=== PATIENT | female | born 1985 | race African-American/Black ===

== ENCOUNTER 2018-07-05 17:05 | Emergency (ER) | payer OTHER ==
[~2018-07-05] VITALS: Ht 170.2 cm; Wt 117.9 kg
--- NOTE | 2018-07-05 17:17 | NUR ---
ED Nurse Note: Patient walked into ED c/o flu like symptoms for 3 days. patient is alert awake ambulatory, patient reports having sorethroat aching.
[2018-07-05 17:23] VITALS: BP 121/72
[2018-07-05] MEDS ORDERED: Lidocaine 2% Visc 15ml soln ORAL ONE (17:30)
[2018-07-05] MEDS ORDERED: Benzonatate 100mg Perles ORAL ONE (17:30)
--- NOTE | 2018-07-05 17:34 | Emergency Room Report ---
History of Present Illness General Chief Complaint: Flu Like Symptoms Source: Patient Present Illness HPI 33-year-old female patient presents the ER complaining of "I think I have the flu". Reports symptoms have been present for the past 3 days. Reports cough with "small amount" of blood with her sputum. Denies recent travel outside the country. Denies taking blood thinner medications. Denies taking control medications. Denies recent periods of immobilization denies history of cancer. Also complaining of sore throat during this time. Reports able to tolerate p.o. fluids. Denies vomiting or diarrhea. Denies abdominal pain. Denies chest pain or shortness of breath. Denies calf pain. Denies other aggravating or relieving factors. States that she received a flu vaccination approximately 2 weeks ago. Denies sick contacts at home. Denies smoking cigarettes. Denies drug use. Denies history of heart disease. Denies history of asthma or pneumonia. Denies bleeding elsewhere. Denies epistaxis. Allergies: Coded Allergies: No Known Allergies (Unverified , 07/05/18) Patient History Past Medical History: see triage record Last Menstrual Period: 06/14/18 Now: No Reviewed Nursing Documentation: PMH: Agreed; PSxH: Agreed Nursing Documentation-PMH Past Medical History: No Stated History Review of Systems All Other Systems: negative except mentioned in HPI Physical Exam Vital Signs Date Time Temp Pulse Resp B/P (MAP) Pulse Ox O2 Delivery O2 Flow Rate FiO2 07/05/18 17:09 98.2 104 21 125/78 98 Room Air Sp02 EP Interpretation: reviewed, normal General Appearance: well appearing, no apparent distress, alert, GCS 15, non- toxic Head: normocephalic, atraumatic Eyes: bilateral eye normal inspection, bilateral eye PERRL ENT: hearing grossly normal, normal pharynx, no angioedema, normal voice, TMs + canals normal, uvula midline, moist mucus membranes Neck: full range of motion, no meningismus, no bony tend Respiratory: lungs clear, normal breath sounds, no rhonchi, no respiratory distress, no accessory muscle use, no wheezing, speaking full sentences Cardiovascular #1: regular rate, rhythm, no edema Gastrointestinal: non tender, soft, no mass, non-distended, no guarding, no rebound Musculoskeletal: back normal, digits/nails normal, gait/station normal, normal range of motion, non-tender, no calf tenderness, Mark's Sign negative Neurologic: alert, oriented x3, responsive, motor strength/tone normal, sensory intact Psychiatric: mood/affect normal Skin: no rash Medical Decision Making PA Attestation Dr. Partida is my supervising Physician whom patient management has been discussed with. Diagnostic Impression: Primary Impression: Pneumonia ER Course Pt. presents to the ED c/o sore throat, cough with sputum, hemoptysis. Ddx considered but are not limited to pneumonia, influenza, TB, PE, viral URI, ,Henrique's, pharyngitis, tonsillitis, peritonsillar abscess. Low suspicion for PE per well's criteria. No trismus, uvula midline, no pharyngeal erythema or edema, low suspicion for peritonsillar abscess. Vital signs: are WNL, pt. is afebrile ER COURSE: Provided with medication in the ER. Chest x-ray shows possible right lower lobe consolidation consistent with pneumonia. Will provide patient with antibiotics. Urine negative. Flu swab negative. Patient resting comfortably no acute distress, states she is feeling better following administration of medication in the ER. Follow up with primary care provider in 1-2 days. Nontoxic appearing in no acute distress, no hypoxia, no confusion, no clinical signs of dehydration, okay for outpatient follow-up and treatment. ER precautions given DISCHARGE: At this time pt is stable for d/c to home. Patient is resting comfortably, in no acute distress, nontoxic appearing, talking without difficulty. Patient to take medications as instructed Will provide with patient care instructions and any necessary prescriptions. Care plan and follow-up instructions provided. Patient instructed to follow-up with primary care provider in 2-3 days. Patient questions asked and answered. Patient reports understanding and agreement to treatment plan. ER precautions given. Patient instructed to return to ER immediately for any new or worsening of symptoms including but not limited to increasing SOB, persistent fever, chest pain, intractable vomiting. - Please note that this Emergency Department Report was dictated using [employer] operator technology software, occasionally this can lead to erroneous entry secondary to interpretation by the dictation equipment. Labs Test 07/05/18 17:33 Urine HCG, Qualitative Negative (NEGATIVE) Chest X-Ray Diagnostic Results Chest X-Ray Diagnostic Results : Chest X-Ray Ordered: Yes # of Views/Limited/Complete: 1 View Indication: Chest Pain EP Interpretation: Yes ROSA Xray: Interpretation reviewed, by supervising MD, and agrees with findings. Interpretation: no effusion, no pneumothorax, other - Right lower lobe consolidation Impression: Other - Pneumonia ROSA Scribe Text Ramón Stewart PA-C Last Vital Signs Date Time Temp Pulse Resp B/P (MAP) Pulse Ox O2 Delivery O2 Flow Rate FiO2 07/05/18 17:23 98.2 94 17 121/72 95 Room Air Status: improved Disposition: HOME, SELF-CARE Condition: Stable Scripts Azithromycin* (ZITHROMAX*) 250 Mg Tablet 250 MG ORAL DAILY, #6 TAB 0 Refills Take two tables once daily for 1 day, then one tablet once daily for 4 days. Prov: Mike Stewart 07/05/18 Benzonatate* (TESSALON PERLE*) 100 Mg Capsule 100 MG ORAL THREE TIMES A DAY, #30 PERLE Prov: Mike Stewart 07/05/18 Ibuprofen* (MOTRIN*) 600 Mg Tablet 600 MG ORAL Q8H PRN for For Pain, #30 TAB 0 Refills Prov: Mike Stewart 07/05/18 Patient Instructions: Community-Acquired Pneumonia, Adult, [id number], Sore Throat, [id number] Additional Instructions: Followup with primary care provider in 2-3 days. Take Tylenol and/or Motrin as needed for pain Salt water gargles 5-6 times a day. Take medications as directed. Patient questions asked and answered. ER precautions given, patient instructed to return to ER immediately for any new or worsening of symptoms. Mike Stewart Jul 05, 2018 17:34
[2018-07-05] MEDS ORDERED: ZITHROMAX250 MG ORAL (18:34)
[2018-07-05] MEDS ORDERED: TESSALON PERLE100 MG ORAL (18:34)
[2018-07-05] MEDS ORDERED: IBUPROFEN600 MG ORAL (18:34)
--- NOTE | 2018-07-06 09:46 | Diagnostic Imaging Report ---
Indication: Shortness of breath Technique: One view of the chest Comparison: none Findings: Inspiration is suboptimal. Heart size is upper limits of normal. Lungs and pleural spaces are clear. Impression: No acute process
== END 2018-07-05 18:30 | disposition home or self-care (01) ==
LOC: EMR 17:39
DX: J18.9 Pneumonia, unspecified organism (principal)
CPT/HCPCS: 71045; 81025; 86710; 99283

== ENCOUNTER 2018-07-25 10:17 | Emergency (ER) | payer MEDICAID, OTHER ==
[~2018-07-25] VITALS: Ht 170.2 cm; Wt 117.9 kg
[~2018-07-25 10:17] MED LIST: IBUPROFEN600 MG ORAL; TESSALON PERLE100 MG ORAL; ZITHROMAX250 MG ORAL
[2018-07-25] MEDS ORDERED: NKM (10:25)
--- NOTE | 2018-07-25 11:16 | Emergency Room Report ---
History of Present Illness General Chief Complaint: Lower Extremity Injury Source: Patient Present Illness HPI Patient presents with left knee pain with chronic swelling. She has been evaluated with CT scan and MRI. The pain is both laterally and also posteriorly in the knee. She feels fullness in the back of her knee. She says that the MRI only revealed fluid in the joint space. She is never been evaluated for gout. She denies any fevers or chills. The knee does not feel warm to her and there are no rashes. She is able to ambulate. She takes Naprosyn which helps the pain. For the last few days the pain is increased and she has had difficulty sleeping at night. She has some decreased range of motion. Her job has her on her feet and this is difficult due to the pain. She has had an Luis wrap in the past but does not have one at this time. It was helpful at that time. The pain is rated 9/10 and worse with walking or bending her knee. It does not radiate. No dysuria, change in bowel habits, dyspnea, chest pain or depression. She denies major medical problems. There is no have family history of gout or arthritis. Allergies: Coded Allergies: No Known Allergies (Unverified , 07/05/18) Patient History Past Medical History: see triage record Social History: Denies: smoking Social History Narrative Works on her feet Last Menstrual Period: 06/14/18 Reviewed Nursing Documentation: PMH: Agreed; PSxH: Agreed Nursing Documentation-PMH Past Medical History: No Stated History Review of Systems All Other Systems: negative except mentioned in HPI Physical Exam Vital Signs Date Time Temp Pulse Resp B/P (MAP) Pulse Ox O2 Delivery O2 Flow Rate FiO2 07/25/18 10:23 98.4 86 18 146/95 96 Room Air Sp02 EP Interpretation: reviewed, normal General Appearance: well appearing, no apparent distress, alert, GCS 15 Head: normocephalic, atraumatic Eyes: bilateral eye normal inspection, bilateral eye PERRL ENT: hearing grossly normal, normal voice, moist mucus membranes Neck: full range of motion, supple Respiratory: no respiratory distress, speaking full sentences Cardiovascular #1: regular rate, rhythm, no edema Cardiovascular #2: 2+ radial (R), 2+ dorsalis pedis (L) Gastrointestinal: normal inspection Musculoskeletal: no calf tenderness, decreased range of mation - Flexion left knee, swelling - Minimal left knee, other - Ligaments are stable, Apley's compression negative. Slightly increased lateral tenderness and also popliteal fossa tenderness without masses appreciated. Neurologic: alert, oriented x3, normal gait, grossly normal Psychiatric: mood/affect normal Skin: no rash Medical Decision Making Diagnostic Impression: Primary Impression: Knee pain Qualified Codes: M25.562 - Pain in left knee ER Course Patient presents with worsening left knee pain post evaluation with MRI. Differential includes strain, Acuña's cyst, osteoarthritis amongst others. Based on exam gout is not high in the list. Patient be treated with Naprosyn and an Luis. Since the MRI was recently completed no further imaging studies are indicated at this time. Luis is was applied by me. Position and tension excellent with improvement in symptoms. Neurovascular checked by me and normal. Discussed treatment plan and need for follow-up. Patient stable for outpatient observation and treatment. Last Vital Signs Date Time Temp Pulse Resp B/P (MAP) Pulse Ox O2 Delivery O2 Flow Rate FiO2 07/25/18 11:30 98.3 67 18 132/61 98 Room Air Status: improved Disposition: HOME, SELF-CARE Condition: Stable Scripts Hydrocodone Bit/Acetaminophen 5-325* (NORCO 5-325*) 1 Each Tablet 1 TAB ORAL Q6H PRN for For Pain, #6 TAB 0 Refills Prov: Jeremy Curry MD 07/25/18 Naproxen (Naproxen) 250 Mg Tablet 250 MG PO TID, #20 TAB Prov: Jeremy Curry MD 07/25/18 Jeremy Curry MD Jul 25, 2018 11:16
[2018-07-25] MEDS ORDERED: NORCO 5-325 TA1 EACH ORAL (11:27)
[2018-07-25] MEDS ORDERED: NAPROXEN250 M1 PO (11:27)
[2018-07-25 11:30] VITALS: BP 132/61
[2018-07-25] MEDS ORDERED: Naproxen 500mg tab ORAL ONE (11:30)
[2018-11-21] MEDS ORDERED: IBU800 MG PO (13:35)
[2018-11-21] MEDS ORDERED: VOLTAREN100 G1 TP (13:35)
[2018-11-21] MEDS ORDERED: NITROFURANTOIN100 M2 ORAL (13:35)
== END 2018-07-25 11:30 | disposition home or self-care (01) ==
LOC: EMR 11:19
DX: M25.562 Pain in left knee (principal)
CPT/HCPCS: 99282

== ENCOUNTER → 2018-11-21 | Emergency (ER) | payer MEDICAID, OTHER ==
[~2018-11-21] VITALS: Ht 170.2 cm; Wt 113.4 kg
[~2018-11-21] MED LIST changes: +IBU800 MG PO; +NAPROXEN250 M1 PO; +NITROFURANTOIN100 M2 ORAL; +NKM; +NORCO 5-325 TA1 EACH ORAL; +VOLTAREN100 G1 TP
[2018-11-21 13:10] VITALS: BP 122/71
--- NOTE | 2018-11-21 13:10 | NUR ---
ED Nurse Note: Patient ambulated in to ER from home due to Lt knee pain 10/12 without injury. Patient alert and oriented x4 and ambulatory. Skin clean and intact. Calm and cooperative. No acute distress noted at this time.
--- NOTE | 2018-11-21 13:33 | Emergency Room Report ---
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 Patient reports that all imaging has already been done however is requesting a note for work. Patient is rating the pain 7 out of 10 with radiation to the calf however no calf tenderness noted. Denies tingling numbness. Denies recent fall or injury. Patient is morbidly obese. Also complains of 2 days of dysuria and urinary frequency. Denies fever and chills, abdominal pain, nausea vomiting. Has not taken medication for symptom relief. Allergies: Coded Allergies: No Known Allergies (Unverified , 07/05/18) Patient History Past Medical History: see triage record Past Surgical History: unable to obtain Pertinent Family History: none Last Menstrual Period: 11/09/2018 Now: No Immunizations: UTD Reviewed Nursing Documentation: PMH: Agreed; PSxH: Agreed Nursing Documentation-PMH Past Medical History: No History, Except For Review of Systems All Other Systems: negative except mentioned in HPI Physical Exam Vital Signs Date Time Temp Pulse Resp B/P (MAP) Pulse Ox O2 Delivery O2 Flow Rate FiO2 11/21/18 13:09 99.0 88 16 122/71 (88) 97 Room Air Sp02 EP Interpretation: reviewed, normal General Appearance: no apparent distress, alert, GCS 15, non-toxic Head: normocephalic, atraumatic Eyes: bilateral eye normal inspection, bilateral eye PERRL ENT: hearing grossly normal, normal pharynx, no angioedema, normal voice Neck: full range of motion, supple, supple/symm/no masses Respiratory: chest non-tender, lungs clear, normal breath sounds, no wheezing, speaking full sentences Cardiovascular #1: regular rate, rhythm, no edema, no murmur, normal capillary refill Gastrointestinal: normal bowel sounds, non tender, soft, non-distended, no guarding, no rebound Genitourinary: no CVA tenderness Musculoskeletal: other - Acuña's cyst palpated in the back of left knee Neurologic: normal inspection, alert, oriented x3, responsive Psychiatric: judgement/insight normal, memory normal, mood/affect normal, no suicidal/homicidal ideation Skin: no rash Lymphatic: no adenopathy Medical Decision Making PA Attestation Diagnosis and treatment plans were reviewed and discussed with my supervising physician Dr. 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 Patient reports that all imaging has already been done however is requesting a note for work. Patient is rating the pain 7 out of 10 with radiation to the calf however no calf tenderness noted. Denies tingling numbness. Denies recent fall or injury. Patient is morbidly obese. Also complains of 2 days of dysuria and urinary frequency. Denies fever and chills, abdominal pain, nausea vomiting. Has not taken medication for symptom relief. Ddx considered but are not limited to: UTI, pyelonephritis, urinary incontinence , prolapsed bladder, Acuña's cyst versus DVT Vital signs: are WNL, pt. is afebrile H&PE are most consistent with: Acuña's cyst, UTI ORDERS: UA, urine , Macrobid, Pyridium, ibuprofen ED INTERVENTIONS: None required at this time. DISCHARGE: At this time pt. is stable for d/c to home. Will provide printed patient care instructions, and any necessary prescriptions. Care plan and follow up instructions have been discussed with the patient prior to discharge. No need for vascular duplex ultrasound since patient has been having this pain and says for several months. Follow-up with your primary care provider weight loss highly advised Last Vital Signs Date Time Temp Pulse Resp B/P (MAP) Pulse Ox O2 Delivery O2 Flow Rate FiO2 11/21/18 13:10 99.0 65 16 122/71 97 Room Air Disposition: HOME, SELF-CARE Condition: Stable Scripts Nitrofurantoin Monohyd/M-Cryst* (MACROBID 100 MG*) 100 Mg Capsule 100 MG ORAL EVERY 12 HOURS for 7 Days, #14 CAP Prov: Lennox oRusseau 11/21/18 Diclofenac Sodium (VOLTAREN) 100 Gm Gel..gram. 2 GM TP TID, #100 GM Prov: Lennox Rousseau 11/21/18 Ibuprofen (Ibu) 800 Mg Tablet 800 MG PO TID, #21 TAB Prov: Lennox Rousseau 8/19/19 Referrals: NOT CHOSEN IPA/MD,REFERRING (PCP) Patient Instructions: Acuña Cyst, Urinary Tract Infection, [id number] Additional Instructions: Take medication as directed follow-up with your primary care provider weight loss highly advised at this time no x-rays needed if there was no injury and you have been having this pain and sits for long time. Lennox Rousseau Nov 21, 2018 13:33
== END | disposition home or self-care (01) ==
LOC: EMR 13:25
DX: M71.22 Synovial cyst of popliteal space [Baker], left knee (principal); N39.0 Urinary tract infection, site not specified
CPT/HCPCS: 81025; 99282

== ENCOUNTER 2019-01-23 21:31 | Emergency (ER) | payer MEDICAID ==
[~2019-01-23] VITALS: Ht 170.2 cm; Wt 113.4 kg
[2019-01-23 21:45] VITALS: BP 138/89
--- NOTE | 2019-01-23 21:46 | NUR ---
ED Nurse Note: pt walked in to ED C/O lower right ABD pain for the past 3 days. pt also states she has burning sensation when voiding. denies any N/V/D. pt is alert x4. VSS
[2019-01-23 22:15] LABS: APPEARANCE,URINE CLEAR; BILIRUBIN, URINE NEGATIVE (NEGATIVE); COLOR,URINE PALE YELLOW; GLUCOSE, URINE (UA) NEGATIVE (NEGATIVE); KETONES,URINE NEGATIVE (NEGATIVE); LEUKOCYTE ESTERASE ,URINE NEGATIVE (NEGATIVE); NITRITE,URINE NEGATIVE (NEGATIVE); PH,URINE 6 (4.5-8.0); PROTEIN,URINE NEGATIVE (NEGATIVE); UROBILINOGEN,URINE NORMAL MG/DL (0.0-1.0)
[2019-01-23] MEDS ORDERED: DOXYCYCLINE MO100 MG ORAL (22:54)
[2019-01-23] MEDS ORDERED: Lidocaine 1% MPF 10mg/ml 5ml INJ ONE (23:00)
[2019-01-23 23:01] VITALS: BP 128/79
--- NOTE | 2019-01-23 23:01 | NUR ---
ER DISCHARGE NOTE: Patient is cleared to be discharged per ERMD, pt is aox4, on room air, with stable vital signs. pt was given dc instructions, pt was able to verbalize understanding, pt id band removed without complications. pt is able to ambulate with steady gait. pt took all belongings.
--- NOTE | 2019-01-23 23:12 | Emergency Room Report ---
History of Present Illness General Chief Complaint: Abdominal Pain Source: Patient Present Illness HPI Patient is a 33-year-old female presents after increased Dysuria and abdominal discomfort. Patient reports having increased burning sensation to the lower abdomen. She reports having a onset after recent unprotected sexual intercourse. She reports having some slight discharge. She denies any fever. She had not been vomiting. She denies any diarrhea. Allergies: Coded Allergies: No Known Allergies (Unverified , 07/05/18) Patient History Past Medical History: see triage record Last Menstrual Period: 01/15/19 Now: No Reviewed Nursing Documentation: PMH: Agreed; PSxH: Agreed Nursing Documentation-PMH Past Medical History: No Stated History Review of Systems All Other Systems: negative except mentioned in HPI Physical Exam Vital Signs Date Time Temp Pulse Resp B/P (MAP) Pulse Ox O2 Delivery O2 Flow Rate FiO2 01/23/19 21:37 98.2 69 16 140/91 (107) 96 Room Air 01/23/19 21:45 100 General Appearance: well appearing, no apparent distress, alert, non-toxic, obese Head: normocephalic, atraumatic ENT: hearing grossly normal, normal voice Neck: full range of motion, supple Respiratory: no respiratory distress, speaking full sentences Cardiovascular #1: normal inspection Gastrointestinal: normal inspection, normal bowel sounds, non tender Genitourinary: no CVA tenderness Musculoskeletal: no calf tenderness Neurologic: normal gait Psychiatric: mood/affect normal Skin: no rash Medical Decision Making Diagnostic Impression: Primary Impression: Urethritis ER Course Patient presented for dysuria. Differential diagnosis included was not limited to appendicitis, urinary tract infection, urethritis, herpes among others. Urinalysis showed no evidence of urinary infection. Patient has a benign exam and does not appear to require imaging studies or labs at this time. No fever or CVA tenderness to suggest pyelonephritis. Patient appears to be stable for outpatient management. Patient was advised outpatient STD testing. Advised to return for fever, increased pain, persistent vomiting or other concerns. Labs Test 01/23/19 21:47 Urine Color Pale yellow Urine Appearance Clear Urine pH 6 (4.5-8.0) Urine Specific [place] 1.015 (1.005-1.035) Urine Protein Negative (NEGATIVE) Urine Glucose (UA) Negative (NEGATIVE) Urine Ketones Negative (NEGATIVE) Urine Blood Negative (NEGATIVE) Urine Nitrite Negative (NEGATIVE) Urine Bilirubin Negative (NEGATIVE) Urine Urobilinogen Normal MG/DL (0.0-1.0) Urine Leukocyte Esterase Negative (NEGATIVE) Urine HCG, Qualitative Negative (NEGATIVE) Last Vital Signs Date Time Temp Pulse Resp B/P (MAP) Pulse Ox O2 Delivery O2 Flow Rate FiO2 01/23/19 23:01 98.0 76 18 128/79 99 Room Air 01/23/19 21:45 100 Status: improved Disposition: HOME, SELF-CARE Condition: Stable Scripts Doxycycline Monohydrate* (DOXYCYCLINE MONOHYDRATE*) 100 Mg Capsule 100 MG ORAL Q12H, #20 CAP 0 Refills Prov: Magnus Partida MD 01/23/19 Patient Instructions: Urethritis, Adult Magnus Partida MD Jan 23, 2019 23:12
== END 2019-01-23 23:01 | disposition home or self-care (01) ==
LOC: EMR 21:54
DX: N34.2 Other urethritis (principal)
CPT/HCPCS: 81003; 81025; 96372; 96374; J0696; Z7502; 99284

== ENCOUNTER 2019-03-13 20:38 | Emergency (ER) | payer BC, MEDICAID ==
[~2019-03-13] VITALS: Ht 170.2 cm; Wt 104.3 kg
[~2019-03-13 20:38] MED LIST changes: +DOXYCYCLINE MO100 MG ORAL
--- NOTE | 2019-03-13 20:51 | NUR ---
ED Nurse Note: pt ambulated to ed c/o Left ankle/leg pain s/p slip and fall at 1600 today. no abnormalities noted, skin dry, and intact
[2019-03-13 20:52] VITALS: BP 131/72
[2019-03-13] MEDS ORDERED: IBUPROFEN600 MG ORAL (21:15)
[2019-03-13 21:24] VITALS: BP 127/74
--- NOTE | 2019-03-13 21:24 | NUR ---
ER DISCHARGE NOTE: Patient is cleared to be discharged per ERMD, pt is aox4, on room air, with stable vital signs. pt was given dc and prescription instructions, pt was able to verbalize understanding, pt id band removed. pt is able to ambulate with steady gait. pt took all belongings.
--- NOTE | 2019-03-13 22:00 | Emergency Room Report ---
History of Present Illness General Chief Complaint: Pain Source: Patient Present Illness HPI 33-year-old female presents ED for evaluation. Complaining of left ankle pain. States that her daughter fell onto her foot this afternoon. Notes some bruising pain to the left ankle and foot. Dull, 5 out of 10, nonradiating. Denies any other injuries. Is able to bear weight. No other aggravating relieving factors. Denies any other associated symptoms Allergies: Coded Allergies: No Known Allergies (Unverified , 07/05/18) Patient History Past Medical History: none Past Surgical History: none Pertinent Family History: none Social History: Denies: smoking, alcohol use, drug use Last Menstrual Period: 02/15/19 Now: No Immunizations: UTD Reviewed Nursing Documentation: PMH: Agreed; PSxH: Agreed Nursing Documentation-PMH Past Medical History: No History, Except For Review of Systems All Other Systems: negative except mentioned in HPI Physical Exam Vital Signs Date Time Temp Pulse Resp B/P (MAP) Pulse Ox O2 Delivery O2 Flow Rate FiO2 03/13/19 20:42 98.1 72 14 131/72 (91) 97 Room Air Sp02 EP Interpretation: reviewed, normal General Appearance: no apparent distress, alert, GCS 15, non-toxic Head: normocephalic Eyes: bilateral eye normal inspection, bilateral eye PERRL ENT: normal ENT inspection Neck: normal inspection Respiratory: normal inspection Cardiovascular #1: normal inspection Gastrointestinal: normal inspection Rectal: deferred Genitourinary: no CVA tenderness Musculoskeletal: tender - L ankle Neurologic: alert, motor strength/tone normal, oriented x3, sensory intact, responsive, speech normal Psychiatric: normal inspection Skin: no rash Lymphatic: normal inspection Procedures Splinting Splinting : Consent: Verbal Pre-Made Type: RISHABH wrap - L michell Pre-Proc Neuro Vasc Exam: normal Post-Proc Neuro Vasc Exam: normal Patient Tolerated: Well Complications: None Medical Decision Making Diagnostic Impression: Primary Impression: Ankle sprain Qualified Codes: S93.402A - Sprain of unspecified ligament of left ankle, initial encounter ER Course Hospital Course 33 yo F presents to ED c/o L ankle pain Differential diagnoses include: Fracture, dislocation, sprain, contusion Clinical course Patient placed on stretcher. After initial [id number] female in no acute distress. There is some mild tenderness to the dorsum of the left foot. No malleoli or tenderness. No crepitus or bruising. No deformity. I offered option for the x-ray but patient declined. placed in rishabh wrap. Discharged to home. I will provide Ortho referrals Diagnosis - ankle sprain Stable and discharged to home with prescription for Motrin. apply ice, keep elevated. weight bear as tolerated. Followup with ortho. Return to ED if symptoms recur or worsen Last Vital Signs Date Time Temp Pulse Resp B/P (MAP) Pulse Ox O2 Delivery O2 Flow Rate FiO2 03/13/19 21:24 98.3 94 14 127/74 100 Room Air Status: improved Disposition: HOME, SELF-CARE Condition: Stable Scripts Ibuprofen* (MOTRIN*) 600 Mg Tablet 600 MG ORAL Q8H PRN for For Pain, #30 TAB 0 Refills Prov: Hemant Marie MD 03/13/19 [facility] Open 24 hour /7 days a week by Appointment Only [address] [facility] [address] [facility] [address] Patient Instructions: Ankle Sprain, [id number] Hemant Marie MD Mar 13, 2019 22:00
== END 2019-03-13 21:24 | disposition home or self-care (01) ==
LOC: EMR 20:57
DX: S93.402A Sprain of unspecified ligament of left ankle, initial encounter (principal); W19.XXXA Unspecified fall, initial encounter; Y92.9 Unspecified place or not applicable
CPT/HCPCS: 99282